=== PATIENT | male | born 1990 | race Two or more races ===

== ENCOUNTER 2021-03-21 17:36 | Emergency (ER) | payer MEDICAID, OTHER ==
[~2021-03-21] VITALS: Ht 182.9 cm; Wt 127.0 kg
[2021-03-21 19:30] VITALS: BP 152/94
[2021-03-21] MEDS ORDERED: IBUPROFEN 800 MG TAB PO ONE (19:30)
== END 2021-03-21 20:14 | disposition home or self-care (01) ==
LOC: ER 17:36
DX: S52.092A Other fracture of upper end of left ulna, initial encounter for closed fracture (principal); V89.9XXA Person injured in unspecified vehicle accident, initial encounter; Y93.89 Activity, other specified; Y92.89 Other specified places as the place of occurrence of the external cause; Y99.8 Other external cause status
CPT/HCPCS: 29105; 73080; 73090